=== PATIENT | female | born 1990 | race Asian ===

== ENCOUNTER 2020-12-06 12:35 | Outpatient (REF) | payer OTHER, SELFPAY ==
--- NOTE | 2020-12-06 09:30 | PAPFT_PTH ---
PATIENT: Paula Ozuna LOC: [facility] U#:[id number] AGE/SX: 30/F ROOM: RE12/06/[address]: Pia Laguna NP : 1990 BED: DIS: 12/06/2020 SPEC #: [id number] RECD: 12/06/20 13:07 STATUS: YANI REAshley #: [id number] BRENDA: 12/06/20 09:[address]: Pia Laguna NP DEPT: [facility] Cytology RECD BY: Kanika Braxton ENTERED: 12/06/20 13:07 SP TYPE: PAPFT OTHR DR: Cecy Kinney MD Tissues: 1 - CX/ENDOCX FOR PAP SMEARS Procedures: PAP THIN PREP/UVM Screening HPV DNA PROBE Comments: [id number] (CHLAMYDIA/GC)
[2020-12-07 14:28] LABS: Chlamydia Result Negative (Negative); GC Result Negative (Negative)
== END 2020-12-06 12:36 | disposition home or self-care (01) ==
LOC: LBN 12:35
PROVIDERS: PCP Internal Medicine; Visit Provider Nurse Practitioner Women's Health
DX: Z12.4 Encounter for screening for malignant neoplasm of cervix (principal); Z11.51 Encounter for screening for human papillomavirus (HPV); Z11.3 Encounter for screening for infections with a predominantly sexual mode of transmission
CPT/HCPCS: 87491; 87591; 88142; 87624

== ENCOUNTER 2021-08-29 17:39 | Emergency (ER) | payer OTHER, SELFPAY ==
[2021-08-29] VITALS (18 sets, daily range): BP systolic 121–128; BP diastolic 80–94; PULSE 65–82; RESP 14–25; TEMP 36.4; O2SAT 97–100
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
== END 2021-08-29 20:05 | disposition home or self-care (01) ==
PROVIDERS: Emergency Provider Emergency Medicine; PCP Internal Medicine
DX: S80.02XA Contusion of left knee, initial encounter (principal); R07.9 Chest pain, unspecified; V49.49XA Driver injured in collision with other motor vehicles in traffic accident, initial encounter
CPT/HCPCS: 73562; 81025; 99284; 71046; 99283

== ENCOUNTER 2021-10-06 05:55 | Outpatient (CLI) | payer OTHER, SELFPAY ==
[2021-10-06 06:10] LABS: HCT 39.2 % (36.0-46.0); HGB 12.8 g/dL (11.2-15.7); MCH 30.3 pg (27.0-33.0); MCHC 32.7 % (32.0-36.0); MCV 92.9 fL (80-95); MPV 8.4 fL (8.0-11.0); Platelet Count 363 10^3/uL (130-400); RBC 4.22 10^6/uL (3.93-5.22); RDW 12.1 % (11.7-14.6); WBC 7.31 10^3/uL (4.4-10.8)
[2021-10-06 06:11] LABS: RDW-SD 41.3 fL
[2021-10-06 06:12] LABS: Calculated LDL 100 mg/dL (<100); Cholesterol 187 mg/dL (<200); Glucose 85 mg/dL (74-106); HDL Cholesterol 79 mg/dL (40-60); Triglyceride 43 mg/dL (<150)
[2021-10-09 10:17] LABS: Hepatitis C Ab w Rflx HCV PCR Negative (Negative)
== END 2021-10-06 05:56 | disposition home or self-care (01) ==
LOC: LBO 05:59
PROVIDERS: PCP Internal Medicine; Visit Provider Internal Medicine
DX: Z13.1 Encounter for screening for diabetes mellitus (principal); Z13.0 Encounter for screening for diseases of the blood and blood-forming organs and certain disorders involving the immune mechanism; Z13.220 Encounter for screening for lipoid disorders; Z11.59 Encounter for screening for other viral diseases
CPT/HCPCS: 80061; 82947; 85027; 86803

== ENCOUNTER 2021-10-07 07:25 | Emergency (ER) | payer OTHER, SELFPAY ==
[2021-10-07] VITALS (26 sets, daily range): BP systolic 111–125; BP diastolic 67–82; PULSE 54–69; RESP 11–19; TEMP 36.5; O2SAT 98–100
--- NOTE | 2021-10-07 07:15 | RT.EKG_ITS ---
APPROVED REPORT Exam: Resting ECG Reason for Exam: CHEST PAIN Patient Location: E HR:61 bpm ECG Measurements Heart Rate 61 AXIS MI 132 P 8 QRSd 79 QRS 76 QT 403 T 44 QTc 405 Conclusion Sinus rhythm...normal P axis, V-rate 60- 99. Sinus. Normal axis. No STEMI. I have reviewed and interpreted ECG and agree with software generated interpretation.
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
[2021-10-07 08:04] LABS: Abs Immature Grans 0.01 10^3/uL (0.0-0.06); Absolute Basophil Count 0.03 10^3/uL (0.0-0.2); Absolute Eosinophil Count 0.14 10^3/uL (0.0-0.7); Absolute Lymphocyte Count 2.07 10^3/uL (1.2-3.4); Absolute Monocyte Count 0.43 10^3/uL (0.1-0.8); Absolute Neutrophil Count 4.01 10^3/uL (1.2-6.7); Basophils % 0.4; Eosinophils % 2.1; HGB 11.6 g/dL (11.2-15.7); Immature Grans % 0.1; Lymphocytes % 30.9; MCH 30.1 pg (27.0-33.0); MCHC 33.1 % (32.0-36.0); MCV 90.9 fL (80-95); MPV 8.5 fL (8.0-11.0); Monocytes % 6.4; Neutrophils % 60.1; Nucleated RBC 0 %; Platelet Count 345 10^3/uL (130-400); RBC 3.85 10^6/uL (3.93-5.22); RDW 12.1 % (11.7-14.6); RDW-SD 40.7 fL; WBC 6.69 10^3/uL (4.4-10.8)
[2021-10-07] MEDS: Normal Saline 1,000 ML 1000 ML IV (08:20)
[2021-10-07] MEDS: Sucralfate 1 GM TAB PO (08:20)
[2021-10-07 08:22] LABS: ALT 11 U/L (14-59); AST 12 U/L (15-37); Albumin 4.2 g/dL (3.4-5.0); Alkaline Phosphatase 41 U/L (46-116); Anion Gap 9.1 mmol/L (3-11); BUN 13 mg/dL (7-18); Bilirubin, Total 0.7 mg/dL (0.2-1.0); CO2 25.9 mmol/L (21.0-32.0); CREATININE 0.7 mg/dL (0.55-1.02); Calcium 10.6 mg/dL (8.5-10.1); Chloride 105 mmol/L (98-107); Glucose 85 mg/dL (74-106); Lipase 176 U/L (73-393); Magnesium 1.8 mg/dL (1.8-2.4); Potassium 3.7 mmol/L (3.5-5.1); Sodium 140 mmol/L (136-145); Total Protein 7.2 g/dL (6.4-8.2); Troponin I < 50 ng/L (<or=60)
[2021-10-07] MEDS: Famotidine 20 MG/2 ML VIAL IVP (08:25)
[2021-10-07 08:38] LABS: D-Dimer 92 ng/mlFEU (<500)
--- NOTE | 2021-10-07 08:45 | DI.RAD_ITS ---
Exam(s) XR CHEST 2V PA LATERAL EXAM: XR CHEST 2V PA LATERAL CLINICAL HISTORY: substernal chest pain, r/o acute disease TECHNIQUE: 2D digital imaging was performed. COMPARISON: CR,XR XR CHEST 2V PA LATERAL from 08/29/2021 FINDINGS: The heart is not enlarged. The lungs are clear and well expanded. No pleural effusion seen. Mediastin al contours appear intact. IMPRESSION: Normal chest. RADIATION DOSE DELIVERED: Total DLP
--- NOTE | 2021-10-07 09:15 | DI.VRAD_ITS ---
PROCEDURE INFORMATION: Exam: XR Chest Exam date and time: 10/07/2021 8:52 AM Age: 31 years old Clinical indication: Other: Cp; Patient HX: R/O acute illness TECHNIQUE: Imaging protocol: XR of the chest. Views: 2 views. COMPARISON: CR XR CHEST 2V PA LATERAL 08/29/2021 7:25 PM FINDINGS: Lungs: Unremarkable. No consolidation or pulmonary edema. Pleural spaces: Unremarkable. No pleural effusion or pneumothorax. Heart/Mediastinum: Heart size is normal. Cardiomediastinal contours are stable and satisfactory. Bones/joints: Unremarkable. IMPRESSION: No active disease in the chest. Dictated and Authenticated by: Kayla Trujillo MD. Ordering:BYRON Chatman MD
== END 2021-10-07 10:03 | disposition home or self-care (01) ==
PROVIDERS: Emergency Provider Physician Assistant; PCP Internal Medicine
DX: R07.9 Chest pain, unspecified (principal); R14.2 Eructation
CPT/HCPCS: 36415; 80053; 81025; 83690; 93005; 96361; 96374; 99284; 71046; 83735; 84484; 85025; 85379; 93010; 99283

== ENCOUNTER 2022-09-21 00:50 | Outpatient (CLI) | payer OTHER, SELFPAY ==
[2022-09-21 14:59] LABS: Lab Add On Test DONE
[2022-09-24 10:55] LABS: Varicella IgG Antibody Positive (See Note)
[2022-09-24 11:36] LABS: Rubella IgG Ab (UVM) Positive (See Note)
== END 2022-09-21 00:51 | disposition home or self-care (01) ==
LOC: LBO 00:50
PROVIDERS: PCP Internal Medicine; Visit Provider Advanced Practice Midwife
DX: Z34.93 Encounter for supervision of normal pregnancy, unspecified, third trimester (principal)
CPT/HCPCS: 36415; 86787; 86850; 86900; 86901; 86762

== ENCOUNTER 2022-10-19 09:09 | Outpatient (CLI) | payer OTHER, SELFPAY ==
[2022-10-19 09:25] VITALS: BP 114/85; PULSE 95; TEMP 36.8
[2022-10-19 09:43] VITALS: BP 114/85; PULSE 95
[2022-10-19] MEDS: DEXTROSE 5%-LACTATED RINGERS 1,000 ML 999 ML IV (10:26)
[2022-10-19] MEDS: Normal Saline Flush 10 ML SYR IVP (10:27)
[2022-10-19] MEDS: Famotidine 20 MG TAB PO (10:57)
--- NOTE | 2022-10-19 13:32 | W.OBNST ---
Date of service: 10/19/22 Time of Service: 11:00 NST Evaluation Reason for NST Reasons for Nonstress Test: LABOR Gestational Age Gestational Age in Weeks and Days: 34 Weeks and 0Days Test and Monitor Explained Test/Monitor Explained: Test Explained and Monitor Explained Vital Signs Blood Pressure: 114/85 Pulse: 95 Temperature: 98.2 F Urine Results Urine Protein: Positive Urine Ketones: Positive Urine Glucose: Negative Urine Blood: Negative NST Information Date on Monitor: 10/19/22 Time on Monitor: 09:20 Date off Monitor: 10/19/22 Time off Monitor: 11:31 Total Time on Monitor: 131 NST Interventions: PO Hydration Comments: initial uterine irritability cleared after hydration completed NST Evaluation Patient States Movement: Present FHR Baseline: 125 Variability: Moderate 6-25 bpm Accelerations: 15x15 Decelerations: None NST Results: Reactive Note N/A NST Note Note: 1 liter IVF D5LR to clear ketones Cvx closed, thick, firm, PPOOP Pt tolerating PO intake well Keep next appt as scheduled NST Reviewed and Verified by: Silva Aguilera
[2022-10-19 13:34] VITALS: BP 114/85; PULSE 95; TEMP 36.8
== END 2022-10-19 11:50 | disposition home or self-care (01) ==
LOC: BCD 09:16 → OBS 09:24
PROVIDERS: PCP Internal Medicine; Visit Provider Advanced Practice Midwife
DX: O60.03 Preterm labor without delivery, third trimester (principal); Z3A.34 34 weeks gestation of pregnancy
CPT/HCPCS: 59025; 96360

== ENCOUNTER 2022-11-09 11:20 | Outpatient (REF) | payer OTHER, SELFPAY ==
[2022-11-09 13:40] LABS: *AMPHETAMINES SCREEN URINE Negative (Negative); *BARBITURATES SCREEN URINE Negative (Negative); *BENZODIAZEPINES SCREEN URINE Negative (Negative); Cannabinoids THC Negative (Negative); Cocaine Screen,Urine Negative (Negative); METHADONE URINE SCREEN Negative (Negative); OPIATES URINE SCREEN Negative (Negative)
[2022-11-09 13:41] LABS: Tricyclic Antidepressants Negative (Negative)
[2022-11-15 21:49] LABS: Buprenorphine Negative ng/mL (Cutoff: 5.0); Norbuprenorphine Negative ng/mL (Cutoff: 2.5)
== END 2022-11-09 11:21 | disposition home or self-care (01) ==
LOC: LBN 11:20
PROVIDERS: PCP Internal Medicine; Visit Provider Obstetrics & Gynecology Gynecology
DX: Z34.90 Encounter for supervision of normal pregnancy, unspecified, unspecified trimester (principal)
CPT/HCPCS: 80307; 80348; 87081

== ENCOUNTER 2022-11-16 11:47 | Outpatient (CLI) | payer OTHER, SELFPAY ==
[2022-11-16 11:58] VITALS: BP 110/72; PULSE 72; TEMP 36.5
[2022-11-16 12:00] VITALS: BP 110/72; PULSE 72
[2022-11-16 12:19] VITALS: BP 110/75; PULSE 69
[2022-11-16 12:38] VITALS: BP 110/72; PULSE 72; TEMP 36.6
--- NOTE | 2022-11-16 12:41 | W.OBNST ---
Date of service: 11/16/22 Time of Service: 12:41 NST Evaluation Reason for NST Reasons for Nonstress Test: GESTATIONAL HYPERTENSION Gestational Age Gestational Age in Weeks and Days: 38 Weeks and 0Days Test and Monitor Explained Test/Monitor Explained: Test Explained and Monitor Explained Vital Signs Blood Pressure: 110/72 Pulse: 72 Temperature: 97.9 F NST Information Date on Monitor: 11/16/22 Time on Monitor: 11:53 Date off Monitor: 11/16/22 Time off Monitor: 12:22 Total Time on Monitor: 29 NST Interventions: PO Hydration NST Evaluation Patient States Movement: Present FHR Baseline: 135 Variability: Moderate 6-25 bpm Accelerations: 15x15 Decelerations: None NST Results: Reactive Note Ultrasound Done: N/A. NST Note Note: Elevated BP in the office. No signs of preeclampsia. urine protein neg. BP WNL at the Center. RTO in 2 weeks. NST Reviewed and Verified by: Marielena Davis
[2022-11-16 12:42] VITALS: BP 110/72; PULSE 72; TEMP 36.6
== END 2022-11-16 12:30 | disposition home or self-care (01) ==
LOC: BCD 11:49 → OBS 11:57
PROVIDERS: PCP Internal Medicine; Visit Provider Advanced Practice Midwife
DX: O13.3 Gestational [pregnancy-induced] hypertension without significant proteinuria, third trimester (principal); Z3A.38 38 weeks gestation of pregnancy
CPT/HCPCS: 59025

== ENCOUNTER 2022-11-23 10:59 | Outpatient (REF) | payer OTHER, SELFPAY ==
[2022-11-23 11:31] LABS: ROM Plus Negative
[2022-11-24 13:05] LABS: Chlamydia Result Negative (Negative); GC Result Negative (Negative)
== END 2022-11-23 11:00 | disposition home or self-care (01) ==
LOC: LBN 10:59
PROVIDERS: PCP Internal Medicine; Visit Provider Advanced Practice Midwife
DX: Z34.93 Encounter for supervision of normal pregnancy, unspecified, third trimester (principal); Z3A.38 38 weeks gestation of pregnancy; Z11.3 Encounter for screening for infections with a predominantly sexual mode of transmission
CPT/HCPCS: 84112; 87491; 87591; 87086

== ENCOUNTER 2022-11-24 16:38 | Inpatient (IN) | payer OTHER, SELFPAY ==
[2022-11-24] VITALS (32 sets, daily range): BP systolic 112–160; BP diastolic 74–94; PULSE 57–122; RESP 16; TEMP 36.6; O2SAT 82–100; BMI 26.2
--- NOTE | 2022-11-24 16:40 | W.PM.OBHPL1 ---
Date of service: 11/24/22 Time of Service: 16:41 Assessment and Plan Assessment and plan (1) Normal labor: Status: Acute Assessment and plan: 1. Admit and will do CBC and type and screen as well as COVID 2. Plan IV access for PCN prophylaxis and potential request for epidural 3. Will support labor and expect NVD (2) GBS (group B Streptococcus carrier), +RV culture, currently : Status: Acute Assessment and plan: 1. PCN prophylaxis per protocol OB-HPI Labor/Delivery History of Present Illness Reason for Visit: Normal Labor Chief Complaint: Uterine Contractions. KRISTI Calculator Estimated Delivery Date Method Current WG Current Estimate 12/01/22 LMP (Certain) 39w 0d Other Estimates 11/30/22 Ultrasound #1 39w 1d History of Present Expected Delivery Route/Plan - LIBBY FODenae - Kirk Mcmullen 11/07/22 arrived from [facility]. GBS + Specific Issues/Plan 1. care in [facility]. Nl Glucola (2 hour GTT done twice in 79/165/100), HIV, HBsAg, RPR,A+.Neg Cx, Nl Pap. No cfDNA. 2. Using progesterone suppository due to subchorionic hemorrhage while in [facility] recommended by GARBAGE COLLECTOR 3. Taking low dose ASA daily due to Nullip and race 4. Pap FREEMAN 05/12/2022 per records 5. VZV, Rubella and Type and screen ordered 09/21 6. Needs dirty urine next visit for GC CT- 11/23/22 Assessment: History Reviewed & Current Narrative: Paula Burks and her , Kirk, present for labor. States contractions began at approximately 10:30 this morning. They were 7 minutes apart and lasting 30 seconds. Since that time she has had them every 3-5 minutes and becoming intolerable. Reports + show, no LOF. Baby has been active. She is aware that she is GBS positive and that antibiotic prophylaxis is recommended in labor. Denies questions. Is considering epidural but is not ready at this time. We have reviewed other options of pain management. Is not currently interested in using tub. KH Review of Systems All systems reviewed & are unremarkable except as noted in HPI and below PFSH All Active Problems (Updated 11/24/22 @ 16:51 by Marielena Bates CNM) GBS (group B Streptococcus carrier), +RV culture, currently (Acute) Normal labor (Acute) Abdominal pain (Acute) (Acute) Contraceptive management (Acute) GERD (gastroesophageal reflux disease) (Chronic) Lumbar strain (Acute) Acne (Acute) Migraines (Chronic) Scoliosis (Acute) Medical History Polycystic ovary disease Surgical History H/O wisdom tooth extraction 2010 with subsequent R tongue tingling from extraction, decrease sensation lower midline to R Side Hx of LASIK 2017 Family History Mother Hypertension Brother Hypertension Social History Smoking/Tobacco Use Status: Never Smoking risk assessment performed?: Yes Alcohol Intake: current Alcohol Intake frequency: holidays/special occasions only Alcohol type: wine Drug use: Never Substance use type: does not use Adopted: No Caregiver/Support person: No Foster care: No Housing: apartment Number of Children: 0 Communication Needs: None Do you need help understanding health information?: Rarely 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, [employer] Sexually active: No Do you think of yourself as: straight/heterosexual Current gender identity: female How often do you talk on the phone with friends or family?: three or more times per week How often do you get together with friends or relatives?: three or more times per week Panel score (0-1 are the most socially isolated patients): 1 What type of physical activity do you participate in: walking and other Details: full nurse, walks daily Frequency: daily Seatbelt use: always Drive 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 hook up driver: No Working smoke detector in home: Yes Carbon monox detector in home: Yes Do you feel safe at home: Yes Female Reproductive History Menstrual Duration of menses: 3-5 days control method: none History History 1 Para 0 Hx # Term Pregnancies 0 Multiple births 0 Hx # Pregnancies 0 Ectopic pregnancies 0 AB induced 0 Hx Number of Living Children 0 AB spontaneous 0 Meds Allergies and Home Medications Allergies Allergy/AdvReac Type Severity Reaction Status Date / Time No Known Allergies Allergy Verified 11/23/22 09:56 Home Medications Medication Instructions Recorded Confirmed Type acetaminophen 325 mg tablet 650 mg PO PRN 07/06/20 11/23/22 History (Tylenol) famotidine 20 mg tablet 20 mg PO BID GERD #180 tabs 10/10/21 11/23/22 Rx prenat.vits,ron,[id number]-[id number] 1 tab PO DAILY 09/13/22 11/23/22 History aspirin 81 mg tablet,delayed 81 mg PO DAILY 09/21/22 11/23/22 History release docusate sodium 100 mg capsule 100 mg PO BID #60 caps 09/21/22 11/23/22 Rx (Colace) calcium polycarbophil 625 mg 1,250 mg PO DAILY 11/09/22 11/23/22 History tablet (FiberCon) ferrous sulfate 325 mg (65 mg 325 mg PO DAILY 11/23/22 11/23/22 History iron) tablet Exam Physical Exam Vital signs: Pulse BP 73 131/85 11/24/22 16:11 11/24/22 16:11 Vital Signs Reviewed: Yes Constitutional Constitutional: mild distress (working well with contractions) and average body habitus Detailed Labor and Delivery Exam Dilation: 3.5 Effacement (%): 90 station: -1 Position: SIMI Cervix position: posterior Consistency: soft Gusman Score: Cervical Points Exam 0 1 2 3 Dilation Closed 1-2cm 3-4 cm 5-6cm Effacement 0-30% 40-50% 60-70% 80% Consistency Firm Medium Soft Station -3 -2 -1,0 +1,+2 Position Posterior Mid Anterior GUSMAN Score(Cervical Ripeness Score): 9 Amniotic Membrane Status: Intact (bulging at cervix) Contraction Frequency(min): 3-5 Contraction Duration(sec): 60 Contraction Intensity: Moderate/Strong Fetus A Heart Rate Baseline: 120 Monitor Accelerations: 15 X 15 Monitor Decelerations: None Variability: Moderate (6-25 BPM) Categories: Category I Est. Weight: 7 lb HEENT Exam HEENT Exam: Normal Neck Exam Neck Exam: Normal Chest/Brest/Axilla Exam Chest Exam: Normal Breast Exam Breast Exam: Not Done Respiratory Exam Respiratory Exam: Normal Cardiovascular Exam Cardiovascular Exam: Normal Abdominal Exam Abdominal Exam: Normal (size equals dates, SIMI presentation) Rectal Exam Rectal Exam: Not Done Exam Exam: Normal Extremities Exam Extremities Exam: Normal Back/Spine/Pelvis Exam Back Exam: Normal Pelvis Adequate: Yes Skin Exam Skin Exam: Normal Neurological Exam Neurological Exam: Normal Psychiatric Exam Psychiatric Exam: Normal Results Results Group Beta Strep: Positive Blood Type: A+ Rubella Status: Immune Varicella Immunity: Immune Lab Results: Hep B & C neg, HIV neg, Syphilis/RPR Neg, 1 hour glucose 85, GC/CT neg did 2 hour GTT in [facility], Fasting 79.2 1 hour 165 and 2 hour 100 on 08/21/22. Risk Assessment Risk for Shoulder Dystocia Historical/Initial OB: NEGATIVE FOR: Pelvic Abnormality, Pre- BMI>30, Previous Shoulder Dystocia or Previous Macrosomia 40 Weeks: NEGATIVE FOR: EFW> 4500 gms, Maternal Weight Gain >40lb or Post Dates Date/Initial: 09/21/22 Delivery Plan @ 40 wks: NVD IRENE Risk for Pre-Eclampsia Yes, if one or more: NEGATIVE FOR: Hx Pre-E/Gest HTN, Chronic HTN, Multiple Gestation, Pre-gestational DM, Renal Disease, Systemic Lupus or APA Syndrome Yes, if 2 or more: POSITIVE FOR: Nulliparity (started in [facility]) Risk for Post- Hemorrhage Initial: NEGATIVE FOR: Multiple Gestation, Previous PPH, Known Clotting Deficiency, Grand Multiparity or Anticoagulation At Risk?: No Counseled re: Active Management: Yes Date/Initials: 11/24/22 Risks Reviewed Risks Reviewed Upon Admission: Yes
[2022-11-24] MEDS: Penicillin G POT. 5,000,000 UNITS in Normal Saline 100 ML 200 UNITS IVPB (17:10)
[2022-11-24 17:13] LABS: HCT 34.1 % (36.0-46.0); HGB 11.7 g/dL (11.2-15.7); MCHC 34.3 % (32.0-36.0); MCV 93 fL (80-95); MPV 8.9 fL (8.0-11.0); Platelet Count 273 10^3/uL (130-400); RBC 3.66 10^6/uL (3.93-5.22); RDW 12.8 % (11.7-14.6); RDW-SD 43.8 fL; WBC 8.76 10^3/uL (4.4-10.8)
[2022-11-24 17:29] LABS: Source Nasal/Nares
[2022-11-24 18:26] LABS: COVID-19 PCR Negative (Negative)
[2022-11-24] MEDS: Lactated Ringers 500 ML IV (19:10)
--- NOTE | 2022-11-24 19:12 | PGE_ITS ---
Date of service: 11/24/22 Time of Service: 19:12 Contractions Monitor Mode: Palpation Contraction Frequency(min): 3 Contraction Duration(sec): 60 Intensity: Moderate/Strong Fetus A Monitor: Doppler Heart Rate Baseline: 130 Assessment and Plan Assessment and plan (1) Normal labor: Status: Acute Assessment and plan: 1. will get epidural and reassess, consider AROM once second dose of PCN is hung. 2. Expect NVD. KH Objective Abnormal lab results 11/24/22 Range/Units 17:00 RBC 3.66 L (3.93-5.22) 10^6/uL Hct 34.1 L (36.0-46.0) % Temp Pulse Resp BP Pulse Ox 97.9 F 71 16 131/85 96 11/24/22 17:02 11/24/22 17:02 11/24/22 17:02 11/24/22 17:02 11/24/22 17:02 Laboratory Results WBC 8.76 10^3/uL (4.4-10.8) 11/24/22 17:00 RBC 3.66 10^6/uL (3.93-5.22) L 11/24/22 17:00 Hgb 11.7 g/dL (11.2-15.7) 11/24/22 17:00 Hct 34.1 % (36.0-46.0) L 11/24/22 17:00 MCV 93 fL (80-95) 11/24/22 17:00 MCH 32.0 pg (27.0-33.0) 11/24/22 17:00 MCHC 34.3 % (32.0-36.0) 11/24/22 17:00 RDW 12.8 % (11.7-14.6) 11/24/22 17:00 Plt Count 273 10^3/uL (130-400) 11/24/22 17:00 MPV 8.9 fL (8.0-11.0) 11/24/22 17:00 COVID-19 Source Nasal/Nares 11/24/22 16:20 SARS-CoV-2 (PCR) Negative (Negative) 11/24/22 16:20 Patient ABO/Rh A Positive 11/24/22 17:00 Antibody Screen NEGATIVE 11/24/22 17:00 Subjective Interval history since last seen: Paula Burks has used nitrous with fairly good relief but is now requesting epidural. Denies urge to push and declines VE at this time. No involuntary pushing noted. Sales Representative [employer] notified to call for epidural. Patient agrees to VE after epidural is effective. KH Results Hemoglobin/Hematocrit: Hgb 11.7 g/dL (11.2-15.7) 11/24/22 17:00 Hct 34.1 % (36.0-46.0) L 11/24/22 17:00 Abnormal Lab Findings: Abnormal Labs 11/24/22 17:00 RBC 3.66 L Hct 34.1 L
--- NOTE | 2022-11-24 19:18 | W.ANESPRE ---
General Info Date of Service Date Performed: 11/24/22 Height: 5 ft 4 in Weight: 69.4 kg Body Mass Index (BMI): 26.2 Meds Allergies and Home Medications Allergies Allergy/AdvReac Type Severity Reaction Status Date / Time No Known Allergies Allergy Verified 11/23/22 09:56 Home Medication Medication Instructions Recorded acetaminophen 325 mg tablet 650 mg PO PRN 07/06/20 (Tylenol) famotidine 20 mg tablet 20 mg PO BID GERD #180 tabs 10/10/21 prenat.vits,ron,[id number] 1 tab PO DAILY 09/13/22 aspirin 81 mg tablet,delayed 81 mg PO DAILY 09/21/22 release docusate sodium 100 mg capsule 100 mg PO BID #60 caps 09/21/22 (Colace) calcium polycarbophil 625 mg 1,250 mg PO DAILY 11/09/22 tablet (FiberCon) ferrous sulfate 325 mg (65 mg 325 mg PO DAILY 11/23/22 iron) tablet Current Visit Medications: Current Medications Generic Name Dose Route Start Last Admin Trade Name Freq PRN Reason Stop Dose Admin Fentanyl/Ropivacaine 200 ml 11/24/22 19:15 Fentanyl/Ropivacaine 2 Mcg/Ml And 0.1% 200 Ml Cadd Cassette EP DIRECTED FELICITA Sodium Chloride 500 mls @ 0 mls/hr 11/24/22 16:38 Saline 500ml Bag IV PRN PRN As Directed Penicillin G Potassium 3,000, 50 mls @ 100 mls/hr 11/24/22 21:00 000 units/ Sodium Chloride IVPB Q4H FELICITA Ringer's Solution 500 mls @ 500 mls/hr 11/24/22 19:04 IV 11/24/22 20:03 BOLUS ONE IV Miscellaneous Supplies 1 each 11/24/22 16:45 Iv Access IV DIRECTED FELICITA Sodium Chloride 0 ml 11/24/22 16:38 Normal Saline Flush 10 Ml Syr IVP PRN PRN PFSH Active Problems Active Problems: Problem Status Onset Code GBS (group B Streptococcus carrier), +RV culture, currently O99.820 Normal labor O80, Z37.9 Abdominal pain R10.9 Z34.90 Contraceptive management Z30.9 GERD (gastroesophageal reflux disease) K21.9 Lumbar strain S39.012A Acne L70.9 Migraines G43.909 Scoliosis M41.9 Medical History Medical History Polycystic ovary disease Surgical History Surgical History H/O wisdom tooth extraction 2010 with subsequent R tongue tingling from extraction, decrease sensation lower midline to R Side Hx of LASIK 2017 Tobacco Smoking/Tobacco Use Status: Never Alcohol Alcohol Intake: current Alcohol intake frequency: holidays/special occasions only Alcohol type: wine Substance Use Substance use: Never Substance use type: does not use Prental History History 1 Para 0 Hx # Term Pregnancies 0 Multiple births 0 Hx # Pregnancies 0 Ectopic pregnancies 0 AB induced 0 Hx Number of Living Children 0 AB spontaneous 0 Vital Signs and Lab Results Vital Signs Most Recent Vital Signs in EMR: Most Recent Vital Signs Temp Pulse Resp BP Pulse Ox 36.6 C 71 16 131/85 96 11/24/22 17:02 11/24/22 17:02 11/24/22 17:02 11/24/22 17:02 11/24/22 17:02 Lab Results 11/24/22 17:00 Blood Type / Crossmatch: Patient ABO/Rh A Positive 11/24/22 Antibody Screen NEGATIVE 11/24/22 Complete Blood Count: White Blood Count 8.76 10^3/uL (4.4-10.8) 11/24/22 17:00 Red Blood Count 3.66 10^6/uL (3.93-5.22) L 11/24/22 17:00 Hemoglobin 11.7 g/dL (11.2-15.7) 11/24/22 17:00 Hematocrit 34.1 % (36.0-46.0) L 11/24/22 17:00 Platelet Count 273 10^3/uL (130-400) 11/24/22 17:00 Complete Metabolic Panel: No Data to Display Liver Function Panel: No Data to Display Coagulation Panel: No Data to Display Cardiac Panel: No Data to Display Arterial Blood Gas: No Data to Display Venous Blood Gas: No Data to Display Pancreas Panel: No Data to Display Thyroid Panel: No Data to Display Infectious Disease: Coronavirus (COVID-19)(PCR) Negative (Negative) 11/24/22 16:20 Coronavirus 2019 Source Nasal/Nares 11/24/22 16:20 Blood Cultures: No Data to Display Toxicology Panel: Urine Amphetamines Screen Negative (Negative) 11/09/22 11:10 Urine Benzodiazepines Screen Negative (Negative) 11/09/22 11:10 Urine Barbiturates Screen Negative (Negative) 11/09/22 11:10 Urine Cocaine Screen Negative (Negative) 11/09/22 11:10 Urine Methadone Screen Negative (Negative) 11/09/22 11:10 Urine Opiates Screen Negative (Negative) 11/09/22 11:10 Ur Tricyclic Antidepressants Screen Negative (Negative) 11/09/22 11:10 Ur Tetrahydrocannabinol (THC) Scrn Negative (Negative) 11/09/22 11:10 Panel: No Data to Display Imaging and Studies Imaging and Studies Study information below may be from another EMR and interpreted by another provider. Please see original notes in EMR for more complete details. EKG Summary: Conclusion Sinus rhythm...normal P axis, V-rate 60- 99. 10/07/21 Anesthesia Assessment and Plan Anesthesia History Personal History: No History of Anesthesia Complications Family History: No Family History of Anesthesia Complications Exercise Tolerance Exercise Tolerance: Metabolic Equivalents>4 Pertinent Negatives Pertinent Negatives: No Major Cardiovascular Symptoms or Complaints and No Major Pulmonary Symptoms or Complaints Cardiac & Pulmonary Exam Cardiac Exam: Normal S1/S2 Heart Sounds Pulmonary Exam: Clear Bilateral Breath Sounds Implantable Cardiac Device Does patient have a Pacemaker or an ICD?: No Airway Exam Known Difficult Airway: No Mallampati Class: 2 Mouth Opening: Normal (> 3cm) Thyromental Distance: Greater than 3 cm Neck Range of Motion: Full ROM Neck Circumference: Normal Teeth Condition: Normal Dentition ASA Classification ASA Score: ASA 2 Emergency Case?: No NPO Status NPO Status: Full Stomach () Status Status: Confirmed Anesthesia Plan Resuscitation Status: Full Code Anesthesia Technique: Labor Epidural Airway Planned: Natural Airway Monitors Used: Standard Monitors
[2022-11-24] MEDS: fentaNYL 100 MCG/2 ML VIAL EP (19:45)
[2022-11-24] MEDS: Bupivacaine 0.25% Pres-Free 10 ML VIAL EP (19:45)
[2022-11-24] MEDS: FentaNYL/ROPIvacaine 2 mcg/ml and 0.1% 200 ML CADD Cassette EP (19:57)
--- NOTE | 2022-11-24 20:02 | W.ANESNEU ---
Epidural/Spinal Catheter Date Performed: 11/24/22 Procedure Start: 19:32 Procedure Stop: 20:03 Requesting Provider: Marielena Bates Procedure Location: Obstetrics Reason Performed: Labor Epidural Standard Monitors Applied: Blood Pressure, SpO2 and See EMR for corresponding vital signs Patient Position: Sitting Sedation Given (Indicate Dose Given): No Sedation given Patient Mental Status: Awake Sterility: Hand Hygiene, Surgical Cap, Surgical Mask, Sterile Gloves, Sterile Drape/Sheet and Chlorhexidine Procedure Location: L3-L4 Interspace Epidural Needle: Tuohy 18 Gauge Needle Length: 3.5 Inch Needle Approach: Midline Epidural Procedure: Skin Prepped, Sterile Drape Placed, 1% Lidocaine to skin and subcutaneous tissue with 25G needle, Tuohy Needle placed, MERCEDES to Saline Used, Epidural Catheter Placed, Negative Heme, Negative CSF Flow and Tuohy Needle Removed Catheter Placed?: Catheter Placed Test Dose (Indicate Dose Given): 3ml 1.5% Lidocaine with 1:200K Epinephrine Given and Negative Test Dose Loss of Resistance Depth (cm): 5 Catheter depth at skin (cm): 12 Dressing: Sorbaview Dressing Placed and Mastisol Used Epidural Provider Bolus (Indicate Dose Given): Total bolus dose given in 3-5 ml divided doses and Total Bupivacaine 0.25% Given (ml) Dose:: 6 ml Additives (Indicate Dose Given ): Fentanyl PF Dose:: 100 mcg Infusion Medication: Medication Infusion Began Medication Infusion: Ropivacaine 0.1% with Fentanyl 2mcg/ml (Infusion started at 1955) Maintenance Infusion Rate (ml/hour): 10 PCEA Bolus Dose (ml): 5 Post Procedure Pain score (0-10): 0 Block Level: N/A Paresthesia: None Ultrasound: Not Used Number of Attempts (See previous attempts in note section): 1 Procedure Tolerated: No Complications and Patient tolerated well Procedure Outcome: Successful Performed By: Rowena Gagnon
--- NOTE | 2022-11-24 20:06 | W.PM.OBNL1 ---
Date of service: 11/24/22 Time of Service: 20:06 Pelvic Exam Dilation: 6 Effacement (%): 90 station: -1 Contractions Monitor Mode: External Contraction Frequency(min): 2-4 Contraction Duration(sec): 60 Intensity: Moderate/Strong Fetus A Monitor: External (US) Heart Rate Baseline: 115 Presentation: Vertex Variability: Moderate (6-25 BPM) Categories: Category I Accelerations: 15 X 15 Decelerations: None Assessment and Plan Assessment and plan (1) Normal labor: Status: Acute Assessment and plan: 1. adequate relief from epidural 2. will reassess in 2-3 hours or prn 3. expect NVD. KH Objective Abnormal lab results 11/24/22 Range/Units 17:00 RBC 3.66 L (3.93-5.22) 10^6/uL Hct 34.1 L (36.0-46.0) % Temp Pulse Resp BP Pulse Ox 97.9 F 63 16 133/83 100 11/24/22 17:02 11/24/22 19:52 11/24/22 17:02 11/24/22 19:52 11/24/22 19:48 Laboratory Results WBC 8.76 10^3/uL (4.4-10.8) 11/24/22 17:00 RBC 3.66 10^6/uL (3.93-5.22) L 11/24/22 17:00 Hgb 11.7 g/dL (11.2-15.7) 11/24/22 17:00 Hct 34.1 % (36.0-46.0) L 11/24/22 17:00 MCV 93 fL (80-95) 11/24/22 17:00 MCH 32.0 pg (27.0-33.0) 11/24/22 17:00 MCHC 34.3 % (32.0-36.0) 11/24/22 17:00 RDW 12.8 % (11.7-14.6) 11/24/22 17:00 Plt Count 273 10^3/uL (130-400) 11/24/22 17:00 MPV 8.9 fL (8.0-11.0) 11/24/22 17:00 COVID-19 Source Nasal/Nares 11/24/22 16:20 SARS-CoV-2 (PCR) Negative (Negative) 11/24/22 16:20 Patient ABO/Rh A Positive 11/24/22 17:00 Antibody Screen NEGATIVE 11/24/22 17:00 Subjective Interval history since last seen: much more comfortable since epidural. Patient had refused to release nitrous during epidural and FHR baseline was 115 with minimal variability but is not improved with accelerations. She is resting comfortably. KH Interventions Pain Management Interventions: Epidural. Results Hemoglobin/Hematocrit: Hgb 11.7 g/dL (11.2-15.7) 11/24/22 17:00 Hct 34.1 % (36.0-46.0) L 11/24/22 17:00 Abnormal Lab Findings: Abnormal Labs 11/24/22 17:00 RBC 3.66 L Hct 34.1 L
[2022-11-24] MEDS: Penicillin G POT. 3,000,000 UNITS in Normal Saline 50 ML 100 UNITS IVPB (20:35)
--- NOTE | 2022-11-24 22:56 | PGE_ITS ---
Date of service: 11/24/22 Time of Service: 22:56 Pelvic Exam Dilation: 10 Effacement (%): 100 station: +1 Position: SIMI Contractions Monitor Mode: External Contraction Frequency(min): 3 Contraction Duration(sec): 60 Intensity: Moderate/Strong Fetus A Monitor: External (US) Heart Rate Baseline: 110 Variability: Moderate (6-25 BPM) Categories: Category I Accelerations: 15 X 15 Decelerations: None Assessment and Plan Assessment and plan (1) Normal labor: Status: Acute Assessment and plan: 1. Continue present management, will reassess in 1 hour for urge to push. Cons ider AROM or pushing effort attempt at that time if no changes. 2. Has had 2 full doses of PCN for GBS prophylaxis 3. Expect NVD. Objective Abnormal lab results 11/24/22 Range/Units 17:00 RBC 3.66 L (3.93-5.22) 10^6/uL Hct 34.1 L (36.0-46.0) % Temp Pulse Resp BP Pulse Ox 97.9 F 68 16 120/82 100 11/24/22 17:02 11/24/22 22:54 11/24/22 17:02 11/24/22 22:54 11/24/22 19:48 Laboratory Results WBC 8.76 10^3/uL (4.4-10.8) 11/24/22 17:00 RBC 3.66 10^6/uL (3.93-5.22) L 11/24/22 17:00 Hgb 11.7 g/dL (11.2-15.7) 11/24/22 17:00 Hct 34.1 % (36.0-46.0) L 11/24/22 17:00 MCV 93 fL (80-95) 11/24/22 17:00 MCH 32.0 pg (27.0-33.0) 11/24/22 17:00 MCHC 34.3 % (32.0-36.0) 11/24/22 17:00 RDW 12.8 % (11.7-14.6) 11/24/22 17:00 Plt Count 273 10^3/uL (130-400) 11/24/22 17:00 MPV 8.9 fL (8.0-11.0) 11/24/22 17:00 COVID-19 Source Nasal/Nares 11/24/22 16:20 SARS-CoV-2 (PCR) Negative (Negative) 11/24/22 16:20 Patient ABO/Rh A Positive 11/24/22 17:00 Antibody Screen NEGATIVE 11/24/22 17:00 Subjective Interval history since last seen: remains very comfortable. feels no urge to push. agrees to VE. KH Results Hemoglobin/Hematocrit: Hgb 11.7 g/dL (11.2-15.7) 11/24/22 17:00 Hct 34.1 % (36.0-46.0) L 11/24/22 17:00 Abnormal Lab Findings: Abnormal Labs 11/24/22 17:00 RBC 3.66 L Hct 34.1 L
[2022-11-25] VITALS (12 sets, daily range): BP systolic 103–158; BP diastolic 57–82; PULSE 60–96; RESP 16; TEMP 36.6; O2SAT 97–99
[2022-11-25] MEDS: Lidocaine 1% Multi-Dose 20 ML VIAL IJ (00:40)
[2022-11-25] MEDS: Oxytocin/Normal Saline 30 UNIT/500 ML BAG 95 UNITS IV (00:40)
--- NOTE | 2022-11-25 01:00 | OBVDS_ITS ---
Date of service: 11/25/22 Time of Service: 01:00 OB Labor/ Delivery Information Baby A Delivery Delivery Method: Spontaneaous Presentation: Vertex Vertex Position: Left Occipital Anterior Cord Description-Baby A: 3 Vessels, Nuchal Cord (X 1 loose reduced before shoulders deliver) and Clamped/Cut Amniotic Fluid: Clear Estimated Blood Loss: 150ml Delivery Outcome: Liveborn Complications: none Transferred: Remains with Mother Note: Paula Ozuna presented in labor and progressed to 10 cm after epidural analgesia at 6 cm. She was 10 cm at 2252 on 11/24/22 but had no urge to push and she and baby were doing well so she labored down until approximately 2330 when she began to push following a variable deceleration to 80. Second stage huddle was held, no increase risks noted. It was very difficult to maintain FHR tracin g with EFM so doppler was ordered verbally to be obtained intermittently during second stage. FHR 100-110 with doppler throughout second stage with some accelerations to 130 auscultated. She pushed well and had SROM for large gush of clear fluid at 0027. Baby paul Yoon delivered SIMI over intact perineum at 0028. There was a nuchal cord loose X 1 reduced before shoulders delivered. Baby was brought to maternal abdomen for skin to skin. Positive family bonding noted. Cord was clamped and cut by FOB after 3 minutes of delayed cord clamping. Pitocin was initiated by IV per protocol. Placenta delivered spontaneously, intact via pickens mechanism at 0036. Fundus firms to U with massage. EBL 150 cc. There were bilateral lower vaginal sulcus 1st degree lacerations that were repaired with 3.0 chromic suture under 1% lidocaine. Sponge, needle and instrument count are correct. Mother and baby are in satisfactory condition. Paula Burks plans to breast feed her son. They plan to have circumcision done, likely on 11/26/22 prior to discharge although in [facility] it is not done until child is age 4. They believe at time of this note that they will do it here. Expect normal PP course. Baby weighed 6lb 6.8oz. 9 at 1 minute and 9 at 5 minutes. Providers Nurse Swimming Pool Servicer: Marielena Bates Nurse: Christianne Mims Nurse: Siomara Dowell Labor/Delivery Information Number of Babies in Womb: 1 Steroids Given: None Reason Steroids Not Administered: N/A Group Beta Strep: Positive Antibiotics Administered: Yes Number of Doses of Antibiotics: 2 Rubella Status: Immune Blood Type: A+ Varicella Immunity: Immune Maternal Complications: None Stages of Labor Onset of Labor Date: 11/24/22 Onset of Labor Time: 09:30 Complete Dilatation Date: 11/24/22 Complete Dilatation Time: 22:52 Labor - Stage 1 Duration: 13 hours and 22 minutes ROM Baby A: 11/25/22 ROM Baby A: 00:27 ROM Total Time- Baby A: [id number] Delivery Date-Baby A: 11/25/22 Delivery Time-Baby A: 00:28 Labor Stage 2 Duration: 1 hours and 36 minutes Placenta Delivery Date-Baby A: 11/25/22 Placenta Delivery Time-Baby A: 00:36 Labor-Stage 3 Duration: 8 minutes Total Length of Labor-Baby A: 14 hours and 58 minutes Placenta Cultured: No Placenta Status: Delivered Baby A Gender: Male Gestational Status: Term (39-41.6 wks) Gestational Age in Weeks/Days: 39 Weeks and 1 Days Score-1 Minute Interval(Baby A) Heart Rate-1 minute: 100 BPM or Greater Respiratory Effort- 1 minute: Spontaneous/Strong Cry Muscle Tone-1 minute: Active Movement Reflex Response-1 minute: Prompt Response Color-1 minute: Bluish Hands or Feet Total Score-1 minute: 9 Score-5 Minute Interval(Baby A) Heart Rate- 5 minute: 100 BPM or Greater Respiratory Effort-5 minute: Spontaneous/Strong Cry Muscle Tone-5 minute: Active Movement Reflex Response-5 minute: Prompt Response Color-5 minute: Bluish Hands or Feet Total Score- 5 minute: 9
[2022-11-25] MEDS: Acetaminophen 325 MG TAB 650 MG PO ×3 (03:17→20:05)
[2022-11-25] MEDS: Ibuprofen 600 MG TAB PO (09:45)
[2022-11-25] MEDS: Hamamelis Leaf/Glycerin 100 EACH BOX PR (16:18)
[2022-11-25] MEDS: Dibucaine 1% 28 GM TUBE TP (16:18)
[2022-11-25] MEDS: Pantoprazole 40 MG TABCR PO (20:09)
[2022-11-25] MEDS: Docusate Sodium 100 MG CAP PO (20:09)
[2022-11-26] MEDS: Ibuprofen 600 MG TAB PO ×2 (00:36→12:08)
[2022-11-26] MEDS: Acetaminophen 325 MG TAB 650 MG PO (05:57)
--- NOTE | 2022-11-26 08:13 | W.PM.OBPNV1 ---
Date of service: 11/26/22 Time of Service: 08:14 Assessment and Plan Assessment and plan (1) care following vaginal delivery: Status: Acute Assessment and plan: 1. continue present management 2. likely discharge later today. IRENE (2) Lactating mother: Status: Acute Assessment and plan: 1. will work with to develop a feeding plan today and address sore nipples further. IRENE Subjective Subjective Interval history: Feeling well. Breast feeding is challenging due to sore nipples. She is hoping to work with today and start pumping. States I'm on the brink of saying I just want to do formula feeding I encouraged patient to keep working through this. Use the cream supplied and have someone watch her latch to ensure that is correct. No other concerns this morning and is hoping to go home this afternoon. IRENE baby status: Doing well and Rooming in [place] feeding status: Exclusively breast feeding Exam Physical Exam Vital signs: Temp Pulse Resp BP Pulse Ox 98 F 89 16 109/68 98 11/25/22 19:39 11/25/22 19:39 11/25/22 19:39 11/25/22 19:39 11/25/22 19:39 Vital Signs Reviewed: Yes Constitutional Constitutional: no acute distress, average body habitus and cooperative HEENT Exam HEENT Exam: Normal Neck Exam Neck Exam: Normal (normal visual inspection) Respiratory Exam Respiratory Exam: Normal Cardiovascular Exam Cardiovascular Exam: Normal Abdominal Exam Abdomen: Other (normal exam) Fundal Exam Fundus: Below Umbilicus and Firm Comment: small lochia noted. Rectal Exam Rectal Exam: Not Done Exam Perineum: Intact, Normal and Repair Intact Extremities Exam Extremity Exam: Normal (denies calf tenderness) and Full ROM Back/Spine/Pelvis Exam Back Exam: Normal Skin Exam Skin Exam: Normal Neurological Exam Neurological Exam: Normal Psychiatric Exam Psychiatric Exam: Normal Results Hemoglobin/Hematocrit: Hgb 11.7 g/dL (11.2-15.7) 11/24/22 17:00 Hct 34.1 % (36.0-46.0) L 11/24/22 17:00 Abnormal Lab Findings: Abnormal Labs 11/24/22 17:00 RBC 3.66 L Hct 34.1 L
[2022-11-26 08:15] VITALS: BP 108/71; PULSE 89; RESP 14; TEMP 37.1
[2022-11-26] MEDS: Dibucaine 1% 28 GM TUBE TP (08:21)
--- NOTE | 2022-11-26 11:03 | DSE_ITS ---
Date of service: 11/26/22 Time of Service: 11:03 DS: Diagnosis Discharge Diagnosis (1) care following vaginal delivery: Status: Acute Asessment and Plan: 1. Continue with post care as instructed 2. RTO in 2 and 6 weeks for PP visits 3. Reviewed PP warning signs and how to contact provider lead generation representative if needed. KH (2) Lactating mother: Status: Acute Asessment and Plan: 1. Has breast pump and knowledge on use, encourage at breast feeding 2. To follow up with Pediatrics as indicated and 3. Follow up in office in 2 and 6 weeks.KH Discharge Plan Disposition Patient Disposition: Home Condition: Good Discharge Details Reason For Visit: Normal Labor Admit Date/Time: 11/24/22 16:38 Admit Provider: Marielena Bates Attending Provider: Marielena Bates Primary Care Provider: Cecy Kinney Hospital Course Hospital Course: Normal labor with epidural for pain management. NVD with lower vaginal bilateral 1st degree sulcus tears repaired with 3.0 Chromic suture. Normal PP course. Home Meds and New Rx's Prescriptions: New ibuprofen 600 mg Tablet 600 mg PO Q6H PRN PRNQty: 90 0RF Continued prenat.vits,ron,[id number] Tablet 1 tab PO DAILY docusate sodium [Colace] 100 mg capsule 100 mg PO BID Qty: 60 4RF calcium polycarbophil [FiberCon] 625 mg tablet 1,250 mg PO DAILY acetaminophen [Tylenol] 325 mg tablet 650 mg PO PRN Patient Comments: occasionally for low back pain ferrous sulfate 325 mg (65 mg iron) tablet 325 mg PO DAILY famotidine 20 mg tablet 20 mg PO BID Qty: 180 3RF Discontinued aspirin 81 mg tablet,delayed release (DR/EC) 81 mg PO DAILY Discharge Instructions Instructions: Ibuprofen (By mouth), Depression (GEN) Stand Alone Forms: BC Instructions, BC Post Vaginal Deliver Activity:: Activity as Tolerated Equipment/Supplies:: No Equipment Needed Diet:: As Tolerated Discharge Orders Discharge Orders: Discharge Order (Routine); Ordered 11/26/22 Ordered By: Marielena Bates OB:DS Summary Summary Vaginal Delivery Method: Spontaneaous Episiotomy Description: None Laceration Description: Sulcus Laceration Extension: First Degree Contraception Discussed Contraception Discussed: Yes Contraceptive Plan: Undecided, Infant Gender-Baby A: Male weight: 6 lb 6.8 oz Disposition of Baby A: Home Status at Discharge Functional status at discharge: independent ambulation Overall status at discharge: patient is back to baseline Mental Status: mental status grossly normal Speech and Movement: speech and movement normal Mood: congruent mood Affect: normal affect Time Spent with Patient providing and/or coordinating discharge services: Less than 30 minutes Exam Physical Exam Vital signs: Temp Pulse Resp BP Pulse Ox 98.8 F 89 14 108/71 98 11/26/22 08:15 11/26/22 08:15 11/26/22 08:15 11/26/22 08:15 11/25/22 19:39 Vital Signs Reviewed: Yes Constitutional Constitutional: no acute distress, average body habitus and cooperative HEENT Exam HEENT Exam: Normal Neck Exam Neck Exam: Normal (normal visual inspection) Respiratory Exam Respiratory Exam: Normal Cardiovascular Exam Cardiovascular Exam: Normal Abdominal Exam Abdomen: Other (normal exam) Fundal Exam Fundus: Below Umbilicus and Firm Comment: small lochia noted. KH Rectal Exam Rectal Exam: Not Done Exam Perineum: Intact, Normal and Repair Intact Extremities Exam Extremity Exam: Normal (denies calf tenderness) and Full ROM Back/Spine/Pelvis Exam Back Exam: Normal Skin Exam Skin Exam: Normal Neurological Exam Neurological Exam: Normal Psychiatric Exam Psychiatric Exam: Normal PFSH All Active Problems (Updated 11/26/22 @ 08:17 by Marielena Bates CNM) Lactating mother (Acute) care following vaginal delivery (Acute) (Acute) GERD (gastroesophageal reflux disease) (Chronic) Acne (Acute) Migraines (Chronic) Scoliosis (Acute) Medical History (Updated 11/26/22 @ 08:17 by Marielena Bates CNM) Abdominal pain Contraceptive management GBS (group B Streptococcus carrier), +RV culture, currently Lumbar strain Normal labor Polycystic ovary disease Surgical History H/O wisdom tooth extraction 2010 with subsequent R tongue tingling from extraction, decrease sensation lower midline to R Side Hx of LASIK 2017 Family History Mother Hypertension Brother Hypertension Social History Smoking/Tobacco Use Status: Never Smoking risk assessment performed?: Yes Alcohol Intake: current Alcohol Intake frequency: holidays/special occasions only Alcohol type: wine Drug use: Never Substance use type: does not use Adopted: No Caregiver/Support person: No Foster care: No Housing: apartment Number of Children: 0 Communication Needs: None Do you need help understanding health information?: Rarely 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, [employer] Sexually active: No Do you think of yourself as: straight/heterosexual Current gender identity: female How often do you talk on the phone with friends or family?: three or more times per week How often do you get together with friends or relatives?: three or more times per week Panel score (0-1 are the most socially isolated patients): 1 What type of physical activity do you participate in: walking and other Details: full nurse, walks daily Frequency: daily Seatbelt use: always Drive 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 truck driver salesperson: No Working smoke detector in home: Yes Carbon monox detector in home: Yes Do you feel safe at home: Yes Do you feel safe in your relationship?: Yes Female Reproductive History Menstrual Duration of menses: 3-5 days control method: none History History 1 Para 0 Hx # Term Pregnancies 0 Multiple births 0 Hx # Pregnancies 0 Ectopic pregnancies 0 AB induced 0 Hx Number of Living Children 0 AB spontaneous 0 DS: Data Vitals/I&O Vitals and I&O: Vital Signs Temperature 98.8 F 11/26/22 08:15 Temperature 97.9 F 11/24/22 16:56 Temperature Source Oral 11/26/22 08:15 Pulse 89 11/26/22 08:15 Pulse 71 11/24/22 16:56 Pulse Rhythm Regular 11/26/22 08:15 Respiratory Rate 14 11/26/22 08:15 Blood Pressure 108/71 11/26/22 08:15 Blood Pressure 131/85 11/24/22 16:56 Blood Pressure Mean 83 11/26/22 08:15 Pulse Oximetry 98 11/25/22 19:39 Oxygen Delivery Method Room Air 11/24/22 17:02 Oxygen Flow Rate 0 11/24/22 17:02 Pain Level 2 11/25/22 21:05 Intake & Output 11/25/22 11/25/22 11/26/22 11:59 23:59 11:59 Intake Total 466.417 / 466.417 Output Total 750 / 750 Balance -283.583 / -283.583 Intake: IV 466.417 / 466.417 Output: Urine 600 / 600 Blood 150 / 150 Other: Urine Color Pale Voiding Methods Toilet
--- NOTE | 2022-11-26 12:45 | W.ANESPOSTOP ---
Postoperative Evaluation Date, Time and Location Date Performed: 11/26/22 Time Performed: 12:45 Patient Location: Obstetrics Vital Signs Most Recent Imported Vital Signs: Most Recent Vital Signs Temp Pulse Resp BP Pulse Ox 37.1 C 89 14 108/71 98 11/26/22 08:15 11/26/22 08:15 11/26/22 08:15 11/26/22 08:15 11/25/22 19:39 Pain Score Most Recent Pain Score: Most Recent Pain Score Pain Level 6 11/26/22 12:08 Assessment Mental Status: Awake (Alert & Oriented to Patient Baseline) Airway and Respiratory Function: Patent airway with normal (patient baseline) respiratory exam Cardiovascular Function: Hemodynamically Stable Hydration Status: Adequately Hydrated Nausea & Vomiting: No Nausea or Vomiting Pain: Pain is tolerable per patient Peripheral Nerve Block: Patient did not receive a nerve block
== END 2022-11-26 15:00 | disposition home or self-care (01) | DRG 807 ==
LOC: OBS 16:44 → BCD 11-26 09:59
PROVIDERS: Admitting Provider Advanced Practice Midwife; PCP Internal Medicine; Visit Provider Advanced Practice Midwife
DX: O99.824 Streptococcus B carrier state complicating childbirth (principal); Z37.0 Single live birth; Z3A.39 39 weeks gestation of pregnancy; K21.9 Gastro-esophageal reflux disease without esophagitis; G43.909 Migraine, unspecified, not intractable, without status migrainosus; O99.284 Endocrine, nutritional and metabolic diseases complicating childbirth; E28.2 Polycystic ovarian syndrome; M41.9 Scoliosis, unspecified; O99.354 Diseases of the nervous system complicating childbirth; O99.62 Diseases of the digestive system complicating childbirth; O70.0 First degree perineal laceration during delivery; O69.81X0 Labor and delivery complicated by cord around neck, without compression, not applicable or unspecified; O75.89 Other specified complications of labor and delivery
CPT/HCPCS: 36415; 85027; 86850; 86900; 86901; 87635; 59025; J1200; J2540; J3010